=== PATIENT | male | born 1945 | race Caucasian/White ===

== ENCOUNTER 2017-04-07 07:45 | Emergency (ER) | payer MEDICARE ==
[~2017-04-07] VITALS: Ht 193 cm; Wt 75.0 kg
[~2017-04-07 07:45] MED LIST: ASPIRIN E.C. 8181 MG PO; NORCO 325 MG-7.1 TAB PO; ZESTRIL40 MG PO; ZOFRAN ODT4 MG PO
[2017-04-07 07:50] VITALS: BP 168/101; TEMP 98.2
[2017-04-07] MEDS ORDERED: COZAAR100 MG PO (07:54)
[2017-04-07] MEDS ORDERED: NORCO 325 MG-51 TAB PO (08:48)
[2017-04-07 09:12] VITALS: PULSE 82
== END 2017-04-07 09:13 | disposition home or self-care (01) ==
LOC: COL.ER 07:45
DX: S62.111A Displaced fracture of triquetrum [cuneiform] bone, right wrist, initial encounter for closed fracture (principal); W23.1XXA Caught, crushed, jammed, or pinched between stationary objects, initial encounter; Y92.009 Unspecified place in unspecified non-institutional (private) residence as the place of occurrence of the external cause; I10 Essential (primary) hypertension; F17.210 Nicotine dependence, cigarettes, uncomplicated; Z79.82 Long term (current) use of aspirin

== ENCOUNTER 2017-10-31 15:26 | Inpatient (IN) | payer MEDICARE ==
[~2017-10-31] VITALS: Ht 193 cm; Wt 68.9 kg
[~2017-10-31 15:26] MED LIST changes: +COZAAR100 MG PO; +NORCO 325 MG-51 TAB PO
[2017-10-31 16:00] VITALS: BP 144/80; PULSE 91; TEMP 98.3
[2017-10-31] MEDS ORDERED: ASPIRIN 32325 MG/TA1 PO (16:10)
[2017-10-31] MEDS ORDERED: FOLIC ACID 11 MG/TA1 PO (16:10)
[2017-10-31] MEDS ORDERED: PEPCID 20MG TAB20 MG PO (16:11)
[2017-10-31] MEDS ORDERED: MULTI VITAMINS1 TAB PO (16:12)
[2017-10-31] MEDS ORDERED: SENOKOT S 50 MG1 TAB PO (16:12)
[2017-10-31] MEDS ORDERED: THIAMINE 1100 MG/TAB PO (16:13)
[2017-10-31] MEDS ORDERED: MAALOX ADVANCE148 ML PO (16:14)
[2017-10-31] MEDS ORDERED: PHILLIPS M400 MG/51 PO (16:16)
[2017-10-31] MEDS ORDERED: NORCO 325 MG-51 TAB PO (16:17)
[2017-11-01 04:59] VITALS: BP 126/79; PULSE 76; TEMP 98.6
[2017-11-01 18:14] VITALS: BP 102/65; PULSE 71; TEMP 99.1
[2017-11-02 06:00] VITALS: BP 120/70; PULSE 70; TEMP 97.6
[2017-11-02 15:10] VITALS: BP 113/72; PULSE 86; TEMP 98
[2017-11-03 03:50] VITALS: BP 124/71; PULSE 78; TEMP 98.2
[2017-11-03 06:52] LABS: HEMATOCRIT 30.1 % (42.0-52.0); HEMOGLOBIN 10.1 g/dl (13.5-18.0)
[2017-11-03 07:06] LABS: CALCIUM 8.5 mg/dL (8.4-10.2); CREATININE, serum 0.74 mg/dL (0.66-1.25); MAGNESIUM 2.1 mg/dL (1.6-2.3); POTASSIUM 4.2 mmol/L (3.4-5.0)
[2017-11-03 14:52] VITALS: BP 115/63; PULSE 68; TEMP 98.8
[2017-11-04 06:39] VITALS: BP 125/72; PULSE 66; TEMP 98.2
[2017-11-04 15:52] VITALS: BP 127/70; PULSE 86; TEMP 98.3
[2017-11-05 04:00] VITALS: BP 131/68; PULSE 77; TEMP 99.2
[2017-11-05] MEDS ORDERED: TYLENOL 325MG325 MG PO (08:30)
[2017-11-05] MEDS ORDERED: HYDROCORTISONE30 G3 TP (08:31)
[2017-11-05] MEDS ORDERED: NORCO 325 MG-51 TAB PO (08:35)
[2017-11-05] MEDS ORDERED: PREDNISONE20 MG PO (08:36)
[2017-11-05 09:46] VITALS: TEMP 99
== END 2017-11-05 13:08 | disposition home or self-care (01) | DRG 559 ==
PROVIDERS: Internal Medicine
DX: S72.011D Unspecified intracapsular fracture of right femur, subsequent encounter for closed fracture with routine healing (principal); E43 Unspecified severe protein-calorie malnutrition; E87.1 Hypo-osmolality and hyponatremia; Z68.1 Body mass index [BMI] 19.9 or less, adult; I10 Essential (primary) hypertension; F17.210 Nicotine dependence, cigarettes, uncomplicated; F10.10 Alcohol abuse, uncomplicated
CPT/HCPCS: 99222-AI; 99232-AI; 99239; J7512

== ENCOUNTER → 2019-03-28 | Outpatient (CLI) | payer MEDICARE ==
[~2019-03-28] MED LIST changes: +ASPIRIN 32325 MG/TA1 PO; +ASPIRIN 81M81 MG/TA2 PO; +FOLIC ACID 11 MG/TA1 PO; +HYDROCORTISONE30 G3 TP; +MAALOX ADVANCE148 ML PO; +MULTI VITAMINS1 TAB PO; +PEPCID 20MG TAB20 MG PO; +PHILLIPS M400 MG/51 PO; +PREDNISONE20 MG PO; +SENOKOT S 50 MG1 TAB PO; +THIAMINE 1100 MG/TAB PO; +TYLENOL 325MG325 MG PO
== END ==
LOC: COL.RAD 03-22 08:30
DX: Q25.46 Tortuous aortic arch (principal); J43.9 Emphysema, unspecified; M43.8X4 Other specified deforming dorsopathies, thoracic region; I71.2 Thoracic aortic aneurysm, without rupture
CPT/HCPCS: Q9967

== ENCOUNTER → 2019-06-06 | Outpatient (CLI) | payer MEDICARE | LOC: COL.LAB 11:24 | DX: Z01.812 Encounter for preprocedural laboratory examination (principal); M25.551 Pain in right hip ==

== ENCOUNTER 2019-06-24 12:32 | Emergency (ER) | payer MEDICARE ==
[~2019-06-24] VITALS: Ht 190.5 cm; Wt 73.6 kg
[~2019-06-24 12:32] MED LIST changes: +CELEBREX 200MG200 MG PO; +ULTRAM 50MG TAB50 MG PO
[2019-06-24] MEDS ORDERED: ASPIRIN 81M81 MG/TA2 PO (13:00)
[2019-06-24 13:59] LABS: BASO # 0.1 (0.0-0.2); BASO % 0.6 % (0.0-2.0); EOS # 0.1 (0.0-0.7); EOS % 0.7 % (0-4.0); GRAN # 8.5 (1.4-6.5); GRAN % 82.6 % (42.2-75.2); LYMPH # 0.6 (1.2-3.4); LYMPH % 5.6 % (20.0-51.0); MEAN CELL VOLUME 98 fl (80.0-100.0); MEAN CORPUSCULAR HEMOGLOBIN 33 pg (27.0-31.0); MEAN CORPUSCULAR HGB CONC 34 g/dl (33.0-37.0); PLATELET COUNT 310 K/mm3 (130-400); RED BLOOD COUNT 3.62 M/mm3 (4.20-5.60); REDCELL DISTRIBUTION WIDTH-CV 14.7 % (11.5-14.5)
[2019-06-24 14:01] LABS: HEMATOCRIT 35.3 % (42.0-52.0)
[2019-06-24 14:13] LABS: PROTHROMBIN TIME 11.1 SECONDS (9.7-12.8)
[2019-06-24 16:30] VITALS: BP 137/76; PULSE 62; TEMP 98
== END 2019-06-24 16:30 | disposition home or self-care (01) ==
LOC: COL.ER 12:32
PROVIDERS: Physician Assistant
DX: S06.0X9A Concussion with loss of consciousness of unspecified duration, initial encounter (principal); S70.01XA Contusion of right hip, initial encounter; S01.111A Laceration without foreign body of right eyelid and periocular area, initial encounter; I10 Essential (primary) hypertension; J44.9 Chronic obstructive pulmonary disease, unspecified; F17.210 Nicotine dependence, cigarettes, uncomplicated; Z79.82 Long term (current) use of aspirin; Z96.641 Presence of right artificial hip joint; W01.0XXA Fall on same level from slipping, tripping and stumbling without subsequent striking against object, initial encounter; Y92.009 Unspecified place in unspecified non-institutional (private) residence as the place of occurrence of the external cause
CPT/HCPCS: J2270; J2405; J3010; J7030

== ENCOUNTER 2019-06-26 15:18 | Inpatient (IN) | payer MEDICARE ==
[~2019-06-26] VITALS: Ht 190.5 cm; Wt 72.5 kg
[2019-06-27] VITALS (9 sets, daily range): BP systolic 121–161; BP diastolic 55–87; PULSE 57–84; TEMP 98.5
--- NOTE | 2019-06-27 11:30 | NUR ---
admitted per WC and prepped for surgery, incision to right hip CD&I, has 3+ edema to right leg and 2+ to left, pedal pulses +1, explanation given to patient and his for going to and returning from surgery, verbalizes understanding
[2019-06-27 11:54] LABS: ALBUMIN 3.7 gm/dL (3.5-5.0); BILIRUBIN,TOTAL 1.6 mg/dL (0.0-1.0); CALCIUM 8.6 mg/dL (8.4-10.2); CREATININE, serum 0.55 (0.66-1.25); POTASSIUM 4.3 mmol/L (3.4-5.0); TOTAL PROTEIN 6.4 gm/dL (6.4-8.2)
--- NOTE | 2019-06-27 12:10 | NUR ---
called and is continuing to c/o pain, spoke with ANKUSH Coelho and he deferred to Dr Sun, then spoke with Dr Sun and he wants to wait to medicate him any further, informed the patient of this, he states sitting up on the side of the bed is what usually helps the pain, assisted him to sitting up and he immediately states the pain is better,
--- NOTE | 2019-06-27 13:00 | NUR ---
sitting up on side of bed leaning back agains bed and appears to be sleeping
--- NOTE | 2019-06-27 14:45 | NUR ---
SW attempted to meet with the patient but the patient was in surgery. SW will attempt at a later time.
--- NOTE | 2019-06-27 16:35 | NUR ---
returned to room from PACU per bed, awake and alert but sleepy, IV infusing and placed on pump at 100ml/hr, O2 on at 2L\NC, SCDs on bilaterally, right leg with 3+edema, occlusive dressing to right hip CD&I, SCDS on bilaterally, at bedside
--- NOTE | 2019-06-27 16:45 | NUR ---
arouses easily, full assessment completed, see interventions for further info, encouraged to C&DB which he does and explained the importance of doing this and using incentive spirometer, lungs with expiratory wheezes in all lobes, cardiopulmonary in and instructed on use of incentive spirometer, has sensation to knees bilaterally and remains unable to move lower extremities
--- NOTE | 2019-06-27 17:45 | NUR ---
has minimal sensation to feet and remains unable to move lower extremities, awakened and instructed to use incentive spirometer which he does with correct technique
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
--- NOTE | 2019-06-27 19:08 | NUR ---
bedside shift report given to BRUCE Ba
--- NOTE | 2019-06-27 20:00 | NUR ---
Patient drowsy but rousable at this time. Right hip has bulky dressing applied. Patient does have sensation and is able to move toes. No complaints of pain, nausea or vomiting. Wynn catheter in place. LR running at this time.
[2019-06-28] VITALS: BP 125/67; PULSE 65; TEMP 97.8
[2019-06-28 04:00] VITALS: BP 128/61; PULSE 57; TEMP 98.3
[2019-06-28 06:25] LABS: HEMOGLOBIN 10.7 g/dl (13.5-18.0)
[2019-06-28 06:41] LABS: HEMATOCRIT 31.6 % (42.0-52.0)
--- NOTE | 2019-06-28 06:45 | NUR ---
in bed and appears to be sleeping, awakens easily, bedside shift report received from BRUCE Ba
--- NOTE | 2019-06-28 07:20 | NUR ---
student MECHANICAL RELIABILITY ENGINEER in and working with patient
--- NOTE | 2019-06-28 08:30 | NUR ---
continues to sleep, awakened and full assessment completed, see josé miguel for further info, assisted him with ordering breakfast, encouraged to cough and deep breathe and use incentive spirometer, lungs with some expiratory wheezes, right leg remains swollen and bruised but is less today, it is 2+ edema, aquacel dressing to right hip CD&I
[2019-06-28 08:42] VITALS: BP 121/67; PULSE 76; TEMP 97.8
[2019-06-28] MEDS ORDERED: ASPIRIN 32325 MG/TA1 PO (09:09)
--- NOTE | 2019-06-28 09:30 | NUR ---
awake and sitting up in bed eating breakfast, denies needs
--- NOTE | 2019-06-28 10:15 | NUR ---
Meliton, MEDICAL CARE MANAGER in to see patient
--- NOTE | 2019-06-28 10:32 | NUR ---
AMARA met with the patient to discuss a discharge plan. The patient lives in [place] with his , Светлана. The patient has a cane and a walker and reports independence with ADLs. The patient's PCP is Dr. Bustillo and patient receives medications from [facility] with no difficulties. The patient does not have advanced directives in the EMR but reports they are completed and designate his . The patient plans to return home with outpatient physical therapy at [facility]. The patient's will provide transportation. There are no additional needs at this time.
--- NOTE | 2019-06-28 10:40 | NUR ---
remains in bed and very sleepy, resp quiet and easy, physical therapy will be in soon
--- NOTE | 2019-06-28 10:59 | NUR ---
physical therapy in to work with patient, assisting him up and out of bed and to recliner
--- NOTE | 2019-06-28 11:05 | NUR ---
ambulating in wray with physical therapy
[2019-06-28 11:28] VITALS: BP 116/63; PULSE 92; TEMP 98.4
--- NOTE | 2019-06-28 11:50 | NUR ---
remains up in chair and appears to be dozing, awakens easily, encouraged to drink more wawter as urine in catheter is umer, verbalizes understanding
--- NOTE | 2019-06-28 13:09 | NUR ---
ambulated out to wray with physical therapy for group exercises
--- NOTE | 2019-06-28 14:00 | NUR ---
calero catheter discontinued
--- NOTE | 2019-06-28 15:19 | NUR ---
appears to be sleeping, in bed with eyes closed, resp quiet and easy
--- NOTE | 2019-06-28 15:30 | NUR ---
RA SPO2 85% A SLEEP. 90% 2 LPM ORIN. AMOL BARRERA NOTIFIED
[2019-06-28 16:43] VITALS: BP 131/71; PULSE 79; TEMP 98
--- NOTE | 2019-06-28 16:59 | NUR ---
sitting up in bed eating late lunch/early supper watching TV
--- NOTE | 2019-06-28 18:02 | NUR ---
medicated with scheduled toradol, states right leg is beginning to have some pain, also c/o pain to left heel, left heel is reddened and he states when he was here 2 weeks ago, ADRI hose were too tight and caused pain to his heel, ADRI hose on left pulled up off his foot, he states relief
--- NOTE | 2019-06-28 18:39 | NUR ---
assisted up to bathroom and had bowel movement but did not void
--- NOTE | 2019-06-28 19:08 | NUR ---
bedside shift report given to BRUCE Penny
[2019-06-28 19:19] VITALS: BP 101/56; PULSE 79; TEMP 98.3
--- NOTE | 2019-06-28 19:58 | NUR ---
Resting in bed with eyes closed. Opens eyes when name called out. Rating pain in right hip 2/, denies need for medication at this time. Explains that he fell on Wednesday and obtained a lacertation to his right eye brow area that sutures were placed in and due to come out tomorrow. Explained that I would let the morning nurse know so she could discuss with the provider in the morning. Right hip with Aquacell dressing CDI, large amount of ecchymosis extending into back noted. Patient has inspiratory wheezing in right lung leon and he says that this is normal for him. Small amount of nonpitting edema noted to right lower extremity. Redness noted to left heel. Patient denies further needs at this time.
--- NOTE | 2019-06-28 23:51 | NUR ---
Resting in bed with eyes closed. Eyes open when name called out. Rates pain 2/10 in right hip. Dressing CDI. Ice pack to right hip. Patient has voided 200mL dark yellow urine in urinal. Denies further needs at this time.
[2019-06-29] VITALS: BP 118/56; PULSE 78; TEMP 98
[2019-06-29 03:43] VITALS: BP 131/70; PULSE 87; TEMP 97.9
--- NOTE | 2019-06-29 03:45 | NUR ---
Lying in bed with eyes closed. Respirations even and unlabored. No signs or symptoms of discomfort noted.
--- NOTE | 2019-06-29 06:02 | NUR ---
Uneventful evening. Patient slept well throughout evening. Dressing to right hip CDI, large amount of ecchymosis noted to right hip, thigh, and back. Wynn catheter was dc'd prior to evening shift. Patient was able to void several times throughout evening with use of urinal.
[2019-06-29 07:53] LABS: HEMOGLOBIN 9.1 g/dl (13.5-18.0)
--- NOTE | 2019-06-29 08:00 | NUR ---
PATIENT IS ORIENTED BUT DROWSY THIS AM. VSS. RATES PAIN IN RLE AT 5/10. GAVE PRN NORCO, TWO TABS BEFORE AM THERAPY. RIGHT HIP DRESSING IS CD&I. TEDS & SCD'S TO BLE. POSITIVE PEDAL PULSES TO BLE. PATIENT PLANNING TO DISCHARGE HOME LATER TODAY. HEAD TO TOE ASSESSMENT WNL. CALLED ER TO FIND OUT WHEN SUTURES TO RIGHT EYE NEED TO COME OUT. PAGED ORTHO FOR SUTURE REMOVAL ORDER.
[2019-06-29 08:33] VITALS: BP 134/78; PULSE 62; TEMP 98
--- NOTE | 2019-06-29 09:37 | NUR ---
Initial visit; Patient thanked Materials Scheduler for looking in on him and offering God's blessings and a thorough healing.
[2019-06-29 12:08] VITALS: BP 103/62; PULSE 71; TEMP 97.6
--- NOTE | 2019-06-29 14:00 | NUR ---
PATIENT DISCHARING HOME VIA WHEELCHAIR TO PERSONAL VEHICLE WITH . GAVE DISCHARGE INSTRUCTIONS, PRESCRIPTIONS & DRESSING SUPPLIES. SENT NEW PAIR OF TEDS WITH PATIENT. PATIENT DISCHARGED
== END 2019-06-29 14:00 | disposition home or self-care (01) | DRG 468 ==
LOC: JCC 06-27 10:53
PROVIDERS: Nurse Anesthetist, Certified Registered; ADMIT Orthopaedic Surgery
PROC: 0SPR0JZ Removal of Synthetic Substitute from Right Hip Joint, Femoral Surface, Open Approach (ICD-10-PCS; 2019-06-27)
PROC: 0SRR03A Replacement of Right Hip Joint, Femoral Surface with Ceramic Synthetic Substitute, Uncemented, Open Approach (ICD-10-PCS; principal; 2019-06-27 13:30)
DX: T84.090A Other mechanical complication of internal right hip prosthesis, initial encounter (principal); Z96.642 Presence of left artificial hip joint; Y79.8 Miscellaneous orthopedic devices associated with adverse incidents, not elsewhere classified; K21.9 Gastro-esophageal reflux disease without esophagitis; J44.9 Chronic obstructive pulmonary disease, unspecified
CPT/HCPCS: A4314; A9284; C1776; J0690; J1885; J2250; J2270; J2704; J2795; J7120; J7121

== ENCOUNTER → 2020-12-19 | Outpatient (CLI) | payer MEDICARE ==
[~2020-12-19] MED LIST changes: +ATIVAN 0.50.5 MG/TAB PO; +DULCOLAX S10 MG/SUPP RC; +ROXANOL 20MG20 MG/ML SL; +SYSTANE 0.3-0.1 EACH OP; +TRANSDERM-0.5 MG/21 TD
== END ==
LOC: COL.RAD 12-10 07:30
DX: M51.36 Other intervertebral disc degeneration, lumbar region (principal); M43.8X4 Other specified deforming dorsopathies, thoracic region; S34.01XA Concussion and edema of lumbar spinal cord, initial encounter

== ENCOUNTER 2021-06-02 00:51 | Inpatient (IN) | payer MEDICARE ==
[2021-06-02] VITALS (807 sets, daily range): BP systolic 107–151; BP diastolic 78–104; PULSE 82–91; TEMP 96.6–97.5; O2SAT 50–100
[~2021-06-02] VITALS: Ht 188 cm; Wt 69.2 kg
[~2021-06-02 00:51] MED LIST changes: -ATIVAN 0.50.5 MG/TAB PO; -DULCOLAX S10 MG/SUPP RC; -ROXANOL 20MG20 MG/ML SL; -SYSTANE 0.3-0.1 EACH OP; -TRANSDERM-0.5 MG/21 TD
[2021-06-02 01:09] LABS: HEMATOCRIT 44.3 % (42.0-52.0); HEMOGLOBIN 13.5 g/dl (13.5-18.0); MEAN CELL VOLUME 98 fl (80.0-100.0); MEAN CORPUSCULAR HEMOGLOBIN 30 pg (27.0-31.0); MEAN CORPUSCULAR HGB CONC 31 g/dl (33.0-37.0); MEAN PLATELET VOLUME 10.5 fl (7.4-10.4); PLATELET COUNT 159 K/mm3 (130-400); RED BLOOD COUNT 4.51 M/mm3 (4.20-5.60); REDCELL DISTRIBUTION WIDTH-CV 15.1 % (11.5-14.5)
[2021-06-02 01:21] LABS: ALBUMIN 3.3 gm/dL (3.5-5.0); BILIRUBIN,TOTAL 0.7 mg/dL (0.0-1.0); CALCIUM 7.9 mg/dL (8.4-10.2); CREATININE, serum 2.57 (0.66-1.25); POTASSIUM 4.6 mmol/L (3.4-5.0); TOTAL PROTEIN 6.3 gm/dL (6.4-8.2)
[2021-06-02 01:31] LABS: ARTERIAL BLD GAS O2 SATURATION 97.4 % (92-100); ARTERIAL BLD GAS TCO2 CT 22.2; ARTERIAL BLOOD GAS BASE EXCESS -12.9 (-2-2); ARTERIAL BLOOD GAS HCO3 19.7 meq/L (22-26)
[2021-06-02 01:32] LABS: ARTERIAL BLOOD GAS PCO2 81.4 mmHg (35-45); ARTERIAL BLOOD GAS PO2 143.6 mmHg (80-100)
[2021-06-02 01:35] LABS: TROPONIN-I 0.998 ng/mL (0.000-0.035)
[2021-06-02 01:52] LABS: COLLECTION METHOD IN
[2021-06-02 02:22] LABS: BAND 4 % (0-10); BASOPHIL 1 % (0-2); LYMPHOCYTE 16 % (20.0-51.0); METAMYELOCYTE 3 % (0-0); NEUTROPHILS 63 % (42.0-75.2)
[2021-06-02 02:24] LABS: HYPOCHROMIA 3+
[2021-06-02 02:25] LABS: ANISOCYTOSIS 1+; BURR CELLS 1+; PLATELET ESTIMATE NORMAL (NORMAL)
[2021-06-02 02:34] LABS: MUCOUS Present /lpf; PH 5 (5-8); SQUAMOUS EPITHELIAL 0-2 /hpf; URINE APPEARANCE Cloudy; URINE BACTERIA None Seen /hpf; URINE BILIRUBIN Negative (NEGATIVE); URINE BLOOD 3+ (NEGATIVE); URINE COLOR Amber; URINE GLUCOSE Negative (NEGATIVE); URINE KETONE Negative (NEGATIVE); URINE LEUKOCYTE ESTERASE Negative (NEGATIVE); URINE NITRATE Negative (NEGATIVE); URINE PROTEIN(semi-quant) 2+ (NEGATIVE); URINE RBC 20-50 /hpf; URINE UROBILINOGEN >=4.0 mg/dL (NEGATIVE)
[2021-06-02 05:04] LABS: ARTERIAL BLD GAS TCO2 CT 25.7; ARTERIAL BLOOD GAS BASE EXCESS -4.6 (-2-2); ARTERIAL BLOOD GAS HCO3 23.9 meq/L (22-26); ARTERIAL BLOOD GAS PCO2 58.4 mmHg (35-45); ARTERIAL BLOOD GAS PO2 118.4 mmHg (80-100); ARTERIAL BLOOD GAS pH 7.23 (7.35-7.45)
--- NOTE | 2021-06-02 06:10 | NUR ---
NO SEDATION ON. PT BREATHING 22-24 BPM WITH SET RATE AT 22. NOT PURPOSEFUL. CORNEAL AND PUPILARY REFLEXES INTACT WELL SPONTANEOUS EXTREMETY MINIMAL REFLEXES NOTED. FLAT AFFECT, DOES NOT APPEAR UNCOMFORTABLE.
[2021-06-02 06:36] LABS: CALCIUM 7.5 mg/dL (8.4-10.2); CREATININE, serum 2.44 (0.66-1.25); POTASSIUM 4.8 mmol/L (3.4-5.0)
--- NOTE | 2021-06-02 07:14 | NUR ---
BEDSIDE SHIFT REPORT RECEIVED FROM BRUCE NATARAJAN. PATIENT IS IN BED RESTING WITH EYES OPEN. SEE GTT TITRATION FLOWSHEET. VSS. POLLACK CATHETER AND RIGHT INTERNAL JUGULAR IN PLACE. HAS LEFT IO SITE WHICH WILL BE PULLED TODAY AND 2 INT SITES.
--- NOTE | 2021-06-02 07:36 | NUR ---
NOTIFIED VIA LAB OF A CRITICAL TROPONIN.
[2021-06-02 07:42] LABS: BASO % 0.3 % (0.0-2.0); GRAN # 8.4 (1.4-6.5); HEMATOCRIT 42.3 % (42.0-52.0); HEMOGLOBIN 13.5 g/dl (13.5-18.0); LYMPH # 0.5 (1.2-3.4); LYMPH % 5.1 % (20.0-51.0); MEAN CORPUSCULAR HEMOGLOBIN 30 pg (27.0-31.0); MEAN CORPUSCULAR HGB CONC 32 g/dl (33.0-37.0); MEAN PLATELET VOLUME 10.2 fl (7.4-10.4); MONO # 0.9 (0.1-0.6); MONO % 8.9 % (1.7-9.3); PLATELET COUNT 160 K/mm3 (130-400); RED BLOOD COUNT 4.53 M/mm3 (4.20-5.60); REDCELL DISTRIBUTION WIDTH-CV 15.1 % (11.5-14.5)
[2021-06-02 08:52] LABS: MEAN CELL VOLUME 93 fl (80.0-100.0)
--- NOTE | 2021-06-02 09:13 | NUR ---
notified dr. guzman of cardiology consult.
[2021-06-02 11:12] LABS: PARTIAL THROMBOPLASTIN TIME 29.2 SECONDS (26.0-37.0)
--- NOTE | 2021-06-02 11:27 | NUR ---
NOTIFIED VIA LAB OF CRITICAL TROPONIN
[2021-06-02 12:14] LABS: TROPONIN-I 2.29 ng/mL (0.000-0.035)
[2021-06-03] VITALS (863 sets, daily range): BP systolic 120–161; BP diastolic 86–119; PULSE 71–82; TEMP 97.1–98.1; O2SAT 92–100
[2021-06-03 03:17] LABS: HEMATOCRIT 40.3 % (42.0-52.0); HEMOGLOBIN 13.4 g/dl (13.5-18.0); MEAN CORPUSCULAR HEMOGLOBIN 29 pg (27.0-31.0); MEAN CORPUSCULAR HGB CONC 33 g/dl (33.0-37.0); MEAN PLATELET VOLUME 11.3 fl (7.4-10.4); PLATELET COUNT 125 K/mm3 (130-400); RED BLOOD COUNT 4.57 M/mm3 (4.20-5.60); REDCELL DISTRIBUTION WIDTH-CV 14.9 % (11.5-14.5)
[2021-06-03 03:18] LABS: MEAN CELL VOLUME 88 fl (80.0-100.0)
[2021-06-03 03:26] LABS: BILIRUBIN,TOTAL 0.6 mg/dL (0.0-1.0); CALCIUM 7.7 mg/dL (8.4-10.2); CREATININE, serum 3.07 (0.66-1.25); POTASSIUM 4.3 mmol/L (3.4-5.0); TOTAL PROTEIN 6.2 gm/dL (6.4-8.2)
[2021-06-03 03:41] LABS: BAND 1 % (0-10); LYMPHOCYTE 3 % (20.0-51.0); NEUTROPHILS 91 % (42.0-75.2); PLATELET ESTIMATE DECREASED (NORMAL)
[2021-06-03 04:37] LABS: ARTERIAL BLD GAS O2 SATURATION 95.7 % (92-100); ARTERIAL BLD GAS TCO2 CT 24.9; ARTERIAL BLOOD GAS BASE EXCESS -2.2 (-2-2); ARTERIAL BLOOD GAS HCO3 23.5 meq/L (22-26); ARTERIAL BLOOD GAS PCO2 43.8 mmHg (35-45); ARTERIAL BLOOD GAS PO2 87.1 mmHg (80-100); ARTERIAL BLOOD GAS pH 7.35 (7.35-7.45)
--- NOTE | 2021-06-03 06:50 | NUR ---
VENT ALARMING FOR LOW VT DELIVERED. PT EYES WIDE OPEN AND BLINKING AND SEEMINGLY UNCOMFORTABLE. INCREASED TO HELP RELAX PT.
--- NOTE | 2021-06-03 06:57 | NUR ---
PATIENTS BLOOD PRESSURE AND HEART RATE WERE ELEVATED; FENTANYL COULDN'T BE DECREASED AT THIS TIME
--- NOTE | 2021-06-03 07:40 | NUR ---
BEDSIDE SHIFT REPORT RECEIVED FROM BRUCE BRUMFIELD. PATIENT STILL INTUBATED WITH MINIMAL SEDATION. SEE GTT TITRATION FLOWSHEET. PATIENT RESTING IN BED WITH EYES OPEN. HYPERTENSIVE BUT VITALS OTHERWISE STABLE. TRIPLE LUMEN CATHETER AND POLLACK CATHETER STILL IN PLACE. ONE INT SITE STILL IN PLACE.
--- NOTE | 2021-06-03 15:00 | NUR ---
Call placed to [facility] regarding the possiblity of patient declining neurologically and family stating if there is not neurological function they wish to stop all treatment. Case opened -[phone]
--- NOTE | 2021-06-03 16:12 | NUR ---
general distillery worker contacted patient's spouse as patient is on a ventilator. Spouse states she will be back to the hospital tomorrow in the morning and will meet with social secretary. Spouse has reinstated the DNR.
--- NOTE | 2021-06-03 19:30 | NUR ---
Received report from BRUCE Cortes.
--- NOTE | 2021-06-03 22:00 | NUR ---
Patient resting quietly in bed. Eyes are bloodshot and are open more often than not. Corneal reflexes are intact. Pupils equal in size and sluggishly reactive to light. Mild non-purposeful movements noted in the lower and upper extremities. All vitals within normal limits. Continues to receive amiodarone, heparin, and fentanyl drips.
[2021-06-04] VITALS (703 sets, daily range): BP systolic 111–126; BP diastolic 59–81; PULSE 62–86; TEMP 97.4–97.9; O2SAT 92–100
[2021-06-04 06:26] LABS: HEMOGLOBIN 11.8 g/dl (13.5-18.0); MEAN CELL VOLUME 88 fl (80.0-100.0); MEAN CORPUSCULAR HEMOGLOBIN 30 pg (27.0-31.0); MEAN CORPUSCULAR HGB CONC 34 g/dl (33.0-37.0); MEAN PLATELET VOLUME 11.4 fl (7.4-10.4); PLATELET COUNT 111 K/mm3 (130-400); RED BLOOD COUNT 3.99 M/mm3 (4.20-5.60); REDCELL DISTRIBUTION WIDTH-CV 15.3 % (11.5-14.5)
[2021-06-04 06:35] LABS: ALBUMIN 2.8 gm/dL (3.5-5.0); BILIRUBIN,TOTAL 0.4 mg/dL (0.0-1.0); CALCIUM 7.7 mg/dL (8.4-10.2); CREATININE, serum 4.34 (0.66-1.25); TOTAL PROTEIN 5.7 gm/dL (6.4-8.2)
--- NOTE | 2021-06-04 07:30 | NUR ---
Report given to BRUCE Styles.
--- NOTE | 2021-06-04 13:27 | NUR ---
Advised per social welfare research worker Jane oM, that pt is going on comfort care and requested a comfort quilt be provided. This was done with explanation to who was in the room. She expressed gratitude.
--- NOTE | 2021-06-04 13:47 | NUR ---
custodial maintenance worker met with patient's spouse at bedside. Patient's son arrived and they plan to discontinue patient's ventilator support and provide comfort care. Spouse states that her daughter did not want to be present at the hospital. Spouse declines community manager services at this time.
--- NOTE | 2021-06-04 18:20 | NUR ---
1320- PT extubated due family requesting comfort care and by orders of Dr. Kirkpatrick. Pt showed signs of air hunger. Morphine given as ordered.
--- NOTE | 2021-06-04 19:09 | NUR ---
Report given to BRUCE Villalobos.
[2021-06-04 19:31] LABS: PROCALCITONIN 1.94 ng/mL (0.00-0.09)
[2021-06-05] VITALS (642 sets, daily range): BP systolic 104–128; BP diastolic 66–85; PULSE 77–87; TEMP 97.6–98; O2SAT 94–100
--- NOTE | 2021-06-05 11:08 | NUR ---
requests PT to have morphine per eMAR for signs of air hunger.
--- NOTE | 2021-06-05 12:01 | NUR ---
I was able to talk with Chanelle Bernard by phone this morning to explore the option of transferring him to [facility] for ongoing comfort care. She is really concerned about cost and what her insurance will cover so I suggested her that we could send information to [facility] and have them review it and contact her insurance company directly about what the charges would be and then call her. She was very open to that and agreed to have a referral sent. I spoke with Dalia at [facility] and she reports that yes they could admit but may not be able to until tomorrow. I have sent the referral and will wait for a response.
--- NOTE | 2021-06-05 19:19 | NUR ---
Report given to BRUCE Yin.
[2021-06-06] VITALS (271 sets, daily range): BP systolic 100–147; BP diastolic 74–91; PULSE 81–85; TEMP 97.7; O2SAT 81–100
--- NOTE | 2021-06-06 08:44 | NUR ---
I visited with Chanelle Bernard in the room yesterday afternoon about where we can go from here and she is agreeable to [facility]. She went to [facility] to tour and talk with Dalia yesterday afternoon. He remains in same condition today and will go by ambulance at around 1030 today to [facility]. I did notify Jane Mo of this plan and asked that she arrange the ambulance which she agreed to do. I also spoke with Chanelle today to advice her of the time of transfer and check on her status. Their daughter is coming today around 1pm.
[2021-06-06] MEDS ORDERED: SYSTANE 0.3-0.1 EACH OP (08:57)
[2021-06-06] MEDS ORDERED: TRANSDERM-0.5 MG/21 TD (08:57)
[2021-06-06] MEDS ORDERED: DULCOLAX S10 MG/SUPP RC (09:02)
[2021-06-06] MEDS ORDERED: ROXANOL 20MG20 MG/ML SL (09:04)
[2021-06-06] MEDS ORDERED: ATIVAN 0.50.5 MG/TAB PO (09:04)
--- NOTE | 2021-06-06 09:20 | NUR ---
oven worker made contact with Dalia at the [facility], and confirmed that they accept patient this morning. Worker arranged for the [facility] ambulance to transport patient this morning at 10:30am. Worker contacted patient's spouse and advised of the above transfer plans. Spouse verbalized approval of above discharge plans.
--- NOTE | 2021-06-06 10:00 | NUR ---
RIJ central line discontinued.
--- NOTE | 2021-06-06 10:41 | NUR ---
Pt picked up by EMS for transport to [facility] - no blongings with pt.
== END 2021-06-06 10:30 | disposition hospice, inpatient (51) | DRG 208 ==
LOC: COL.ER 00:51 → ICU 02:41
PROVIDERS: Emergency Medicine; Internal Medicine; Internal Medicine Adult Congenital Heart Disease; Internal Medicine Sleep Medicine; Student in an Organized Health Care Education/Training Program; ADMIT Internal Medicine
PROC: 02HV33Z Insertion of Infusion Device into Superior Vena Cava, Percutaneous Approach (ICD-10-PCS; principal; 2021-06-02)
PROC: 5A1945Z Respiratory Ventilation, 24-96 Consecutive Hours (ICD-10-PCS; 2021-06-02)
PROC: 0BH17EZ Insertion of Endotracheal Airway into Trachea, Via Natural or Artificial Opening (ICD-10-PCS; 2021-06-02)
DX: J44.1 Chronic obstructive pulmonary disease with (acute) exacerbation (principal); I46.8 Cardiac arrest due to other underlying condition; I21.A1 Myocardial infarction type 2; J96.02 Acute respiratory failure with hypercapnia; K72.00 Acute and subacute hepatic failure without coma; E87.2 Acidosis; N17.9 Acute kidney failure, unspecified; Z66 Do not resuscitate; F10.10 Alcohol abuse, uncomplicated; F17.210 Nicotine dependence, cigarettes, uncomplicated; Z20.822 Contact with and (suspected) exposure to COVID-19; I10 Essential (primary) hypertension; I45.81 Long QT syndrome; G31.84 Mild cognitive impairment of uncertain or unknown etiology; R34 Anuria and oliguria; G31.2 Degeneration of nervous system due to alcohol; I95.9 Hypotension, unspecified; Z99.81 Dependence on supplemental oxygen; Z79.82 Long term (current) use of aspirin
CPT/HCPCS: 99223-AI; 99231-AI; 99232-AI; 99233-AI; 99239; J0282; J0360; J0692; J1644; J1953; J2060; J2270; J2704; J2920; J3010; J3475; J7030; J7060; J7120; Q9967